=== PATIENT | male | born 1980 | race Caucasian/White ===

== ENCOUNTER 2016-10-31 23:09 | Emergency (ER) | payer OTHER ==
[2016-11-01] MEDS ORDERED: HYDROCODONE/ACETAMINOPHEN 5-325 MG TABLET PO ONE (00:35)
--- NOTE | 2016-11-01 01:03 | ER Document Report ---
ED General - General Chief Complaint: Head Injury Stated Complaint: HEAD INJURY Notes: Patient is a 35-year-old male presents with complaint of being hit in head with base wall. He was pitching to player hit a line drive and hit him directly in the left side of face and amish portion of his head. He did not black out but became very days. He's been holding compression and ice to the area since and. Hurts to open his left jaw. He had some blurred type vision. He is not on blood thinners. No other injuries. No neck pain. No other complaints at this time. TRAVEL OUTSIDE OF THE [place] IN LAST 30 DAYS: No - Related Data Allergies/Adverse Reactions: ketorolac tromethamine [From Toradol] Allergy (Verified 10/31/16 23:21) mesalamine [From Pentasa] Allergy (Verified 10/31/16 23:21) metronidazole [From Flagyl] Allergy (Verified 10/31/16 23:21) Metronidazole HCl [From Flagyl] Allergy (Verified 10/31/16 23:21) morphine [Morphine] Allergy (Verified 10/31/16 23:21) Penicillins Allergy (Verified 10/31/16 23:21) propranolol [Propranolol] Allergy (Verified 10/31/16 23:21) Sulfa (Sulfonamide Antibiotics) Allergy (Verified 10/31/16 23:21) tramadol [Tramadol] Allergy (Verified 10/31/16 23:21) Past Medical History - Social History Smoking Status: Never Smoker Frequency of alcohol use: None Drug Abuse: None Family History: Reviewed & Not Pertinent Patient has suicidal ideation: No Patient has homicidal ideation: No Renal/ Medical History: Reports: Hx Kidney Stones. Denies: Hx Peritoneal Dialysis GI Medical History: Reports: Hx Crohn's Disease, Hx Gastroesophageal Reflux Disease, Hx Hiatal Hernia Past Surgical History: Reports: Hx Abdominal Surgery, Hx Bowel Surgery, Hx Cholecystectomy, Hx Rectal Surgery - Immunizations Hx Diphtheria, Pertussis, Tetanus Vaccination: Yes Review of Systems - Review of Systems Notes: My Normal Review Basic REVIEW OF SYSTEMS: CONSTITUTIONAL : Denies fever, chills, or sweats. Denies recent illness. EENT: Pain to left side of face. GASTROINTESTINAL: Denies abdominal pain. Denies nausea, vomiting, or diarrhea. Denies constipation. Last BM: MUSCULOSKELETAL: Denies neck or back pain or joint pain or swelling. SKIN: Denies rash or skin lesions. NEUROLOGICAL: Denies altered mental status or loss of consciousness. Has a headache. Denies weakness or paralysis or loss of use of either side. Denies problems with gait or speech. Denies sensory or motor loss. ALL OTHER SYSTEMS REVIEWED AND NEGATIVE. Physical Exam - Vital signs Vitals: Temp Pulse Resp BP Pulse Ox 98.4 F 116 H 18 127/90 H 100 10/31/16 23:13 10/31/16 23:13 10/31/16 23:13 10/31/16 23:13 10/31/16 23:13 - Notes Notes: General Appearance: Well nourished, alert, cooperative, no acute distress, moderate obvious discomfort. Vitals: reviewed, See vital signs table. Head: no swelling or tenderness to the head Eyes: PERRL, EOMI, Conjuctiva clear Mouth: No decreasd moisture Throat: No tonsillar inflammation, No airway obstruction, No lymphadenopathy Neck: Supple, no neck tenderness, Extremities: strength 5/5 in all extremities, good pulses in all extremities, no swelling or tenderness in the extremities, no edema. Skin: warm, dry, appropriate color, no rash Neuro: speech clear, oriented x 3, normal affect, responds appropriately to questions. Cranial nerves II through XII are intact. Distal sensation intact. Patient moves all extremities without difficulty. Course - Vital Signs Vital signs: Temp Pulse Resp BP Pulse Ox 97.9 F 81 16 120/81 97 11/01/16 02:38 11/01/16 02:38 11/01/16 02:38 11/01/16 02:38 11/01/16 02:38 - Transfer of Care Notes: 11/01/16 05:59 CT scan showed no evidence of skull fracture bleeding in the brain or facial fracture. I informed patient most likely suffered concussion. We'll have him avoid any type of activities that could potentially and physical contact for at least 2 weeks. Patient encouraged return to ER immediately if he has severe headache, vomiting, or feels unwell. Patient agrees with plan and will be discharged home. Dictation of this chart was performed using voice recognition software; therefore, there may be some unintended grammatical errors. 11/01/16 05:59 Discharge - Discharge Clinical Impression: Concussion Qualifiers: Encounter type: initial encounter Loss of consciousness presence/duration: without LOC Qualified Code(s): S06.0X0A - Concussion without loss of consciousness, initial encounter Condition: Good Disposition: HOME, SELF-CARE Instructions: Oral Narcotic Medication ([facility]) Additional Instructions: Concussion You have suffered a concussion -- a temporary loss of certain brain functions due to a mild brain injury. The recovery is usually rapid and complete. The temporary problems occurring with a concussion can include loss of consciousness, dizziness, nausea, vomiting, and confusion. Repeat concussions can cause brain damage. In the future, avoid activities that will cause a blow to your head. Wear a helmet for sports such as snowboarding, biking, or skating. It's important that someone be with you for the first 24 hours. During this time, do not exercise or drive a vehicle. Do not take any pain medication stronger than acetaminophen unless prescribed by the physician. Any significant changes should be reported immediately to the physician. Signs of a problem may include: (1) Mental confusion (2) Incoordination or staggering (3) Repeated or forceful vomiting (4) Clear or bloody drainage from ear, mouth, or nose (5) Severe headache, not relieved by acetaminophen or prescribed pain medication (6) Failure to improve in 24 hours Please return to the ER immediately if you have intractable vomiting, worsening headache, or severe sleepiness. Please follow up closely with your doctor for reevaluation on Friday. Avoid any activities that could cause potential contact or trauma to your head for at least 2 weeks. Referrals: MATTEO OLSEN MD [Primary Care Provider] - 11/04/16
[2016-11-01] MEDS ORDERED: HYDROCODONE/ACETAMINOPHEN 5-325 MG 6 TAB/DSPK PO PRN (02:21)
[2016-11-01 02:39] VITALS: BP 120/81
== END 2016-11-01 02:39 | disposition home or self-care (01) ==
LOC: ER 23:09
DX: S06.0X0A Concussion without loss of consciousness, initial encounter (principal); W21.03XA Struck by baseball, initial encounter; Y93.64 Activity, baseball; Y92.320 Baseball field as the place of occurrence of the external cause; Z88.8 Allergy status to other drugs, medicaments and biological substances; Z88.1 Allergy status to other antibiotic agents; Z88.5 Allergy status to narcotic agent; Z88.0 Allergy status to penicillin; Z88.2 Allergy status to sulfonamides
CPT/HCPCS: 70450; 70486; 99284

== ENCOUNTER 2017-05-10 22:36 | Emergency (ER) | payer MEDICARE, OTHER ==
[2017-05-10 23:52] LABS: ABSOLUTE BASOPHILS # (AUTO) 0.1 10^3/uL (0.0-0.2); ABSOLUTE EOSINOPHILS # (AUTO) 0.1 10^3/uL (0.0-0.6); ABSOLUTE LYMPHOCYTES (AUTO) 1.9 10^3/uL (0.5-4.7); ABSOLUTE MONOCYTES (AUTO) 0.8 10^3/uL (0.1-1.4); ABSOLUTE NEUT (AUTO) 6.5 10^3/uL (1.7-8.2); BASOPHILS % (AUTO) 1.4 % (0-2); HEMATOCRIT 37.3 % (37.9-51.0); HGB HCT DIFFERENCE 1.7; LYMPHOCYTES % (AUTO) 20.3 % (13-45); MEAN CORPUSCULAR HEMOGLOBIN 30.5 pg (27.0-33.4); MEAN CORPUSCULAR HGB CONC 34.8 g/dL (32.0-36.0); MEAN CORPUSCULAR VOLUME 88 fl (80-97); MONOCYTES % (AUTO) 8.2 % (3-13); RED BLOOD COUNT 4.26 10^6/uL (4.35-5.55); RED CELL DISTRIBUTION WIDTH 12.4 % (11.5-14.0); SEGMENTED NEUTROPHILS % (AUTO) 69.1 % (42-78); WHITE BLOOD COUNT 9.4 10^3/uL (4.0-10.5)
[2017-05-10 23:56] LABS: PROTHROMBIN TIME 12.1 SEC (11.4-15.4)
[2017-05-11] MEDS ORDERED: HYDROMORPHONE HCL INJ/PF 2 MG/ML AMPULE IV ONE ×2 (00:02→03:47)
[2017-05-11] MEDS ORDERED: NORMAL SALINE 1000 ML 1,000 ML IV PRN (00:02)
--- NOTE | 2017-05-11 00:03 | ER Document Report ---
ED General - General Chief Complaint: Wound Infection Stated Complaint: POST SURGERY PROBLEMS Time Seen by Provider: 05/10/17 23:41 Notes: Patient is a 36-year-old male who presents emergency department for wound check. Patient states that he had surgery on April 23 for reversal of previous ileoanal ostomy. Patient states that he has a history of Crohn's disease that is previously required total colectomy, loop ileostomy, ileoanal anastomosis with recent reversal for an ileostomy. Patient states that he was in the hospital for approximately 2 weeks with noted complication of ileus. Otherwise he states that he was discharged home to do wet-to-dry dressings of his abdominal incision that had evidence of wound dehiscence. Patient states that he has been doing wet-to-dry dressings every 12 hours. States this evening she had an area that he was concerned was pus. Otherwise he denies any fevers, chills, nausea, vomiting, abdominal pain. TRAVEL OUTSIDE OF THE [place] IN LAST 30 DAYS: No - Related Data Allergies/Adverse Reactions: ketorolac tromethamine [From Toradol] Allergy (Verified 10/31/16 23:21) mesalamine [From Pentasa] Allergy (Verified 10/31/16 23:21) metronidazole [From Flagyl] Allergy (Verified 10/31/16 23:21) Metronidazole HCl [From Flagyl] Allergy (Verified 10/31/16 23:21) morphine [Morphine] Allergy (Verified 10/31/16 23:21) Penicillins Allergy (Verified 10/31/16 23:21) propranolol [Propranolol] Allergy (Verified 10/31/16 23:21) Sulfa (Sulfonamide Antibiotics) Allergy (Verified 10/31/16 23:21) tramadol [Tramadol] Allergy (Verified 10/31/16 23:21) Past Medical History - Social History Smoking Status: Never Smoker Family History: Reviewed & Not Pertinent Patient has suicidal ideation: No Patient has homicidal ideation: No Renal/ Medical History: Reports: Hx Kidney Stones. Denies: Hx Peritoneal Dialysis GI Medical History: Reports: Hx Crohn's Disease, Hx Gastroesophageal Reflux Disease, Hx Hiatal Hernia Past Surgical History: Reports: Hx Abdominal Surgery, Hx Bowel Surgery, Hx Cholecystectomy, Hx Rectal Surgery - Immunizations Hx Diphtheria, Pertussis, Tetanus Vaccination: Yes Review of Systems - Review of Systems Constitutional: No symptoms reported Cardiovascular: No symptoms reported Respiratory: No symptoms reported Gastrointestinal: See HPI Physical Exam - Vital signs Vitals: Temp Pulse Resp BP Pulse Ox 98.7 F 90 20 134/80 H 95 05/10/17 22:39 05/10/17 22:39 05/10/17 22:39 05/10/17 22:39 05/10/17 22:39 - Notes Notes: PHYSICAL EXAM GENERAL: Alert, interacts well. HEAD: Normocephalic, atraumatic. EYES: Pupils equal, round, and reactive to light. Extraocular movements intact. ENT: Oral mucosa moist, tongue midline. NECK: Full range of motion. Supple. Trachea midline. LUNGS: Clear to auscultation bilaterally, no wheezes, rales, or rhonchi. No respiratory distress. HEART: Regular rate and rhythm. No murmurs, gallops, or rubs. ABDOMEN: Soft, nondistended, nontender. No guarding, rebound, or rigidity.. Bowel sounds present in all 4 quadrants. EXTREMITIES: Moves all 4 extremities spontaneously. No edema, radial and dorsalis pedis pulses 2/4 bilaterally. No cyanosis. NEUROLOGICAL: Alert and oriented x4. Normal speech. PSYCH: Normal affect, normal mood. SKIN: Warm, dry, normal turgor. Midline abdominal laparotomy incision with phoebe and central to the incision is an area approximately 3 cm long and wide with packing. Approximately 3 cm cephalic to this area is an area lateral to the incision that when pressed has clear serous fluid. No surrounding erythema , induration. Course - Re-evaluation Re-evalutation: 05/11/17 03:47 Patient is a 36-year-old male who is hemodynamically stable, no acute distress afebrile. Given previous abdominal surgeries, complications and presentation this evening CT scan was ordered to rule out any concern for deeper abscess. There is no evidence of this on scan. Discussion with resident on-call [facility] agrees with plan for repacking of the site and to withhold antibiotics given no signs of fever, elevated white blood cell count or cellulitis. 2 phoebe removed from the incision to allow for continued drainage of this area. Patient tolerated the procedure well. Stable for discharge home and to touch base with the surgeon's office on Friday. - Vital Signs Vital signs: Temp Pulse Resp BP Pulse Ox 98.7 F 79 16 118/72 95 05/11/17 05:21 05/11/17 05:21 05/11/17 05:21 05/11/17 05:21 05/11/17 05:21 - Laboratory Result Diagrams: 05/10/17 23:46 05/10/17 23:46 Laboratory results interpreted by me: 05/10/17 05/10/17 05/11/17 23:46 23:46 01:20 RBC 4.26 L Hgb 13.0 L Hct 37.3 L Plt Count 495 H Calcium 10.5 H ALT 74 H Alkaline Phosphatase 228 H Urine Blood SMALL H - Diagnostic Test Radiology reviewed: Image reviewed, Reports reviewed Discharge - Discharge Clinical Impression: Visit for wound check Condition: Good Disposition: HOME, SELF-CARE Additional Instructions: Please continue to care for your wound as you have been instructed by [facility]. Please be sure to touch base with your surgeon on Friday Referrals: JESSICA RUBY NP [Primary Care Provider] - Follow up as needed
[2017-05-11 00:25] LABS: ALANINE AMINOTRANSFERASE 74 U/L (21-72); ALBUMIN 4.5 g/dL (3.5-5.0); ALKALINE PHOSPHATASE 228 U/L (38-126); ANION GAP 15 (5-19); ASPARTATE AMINO TRANSFERASE 39 U/L (17-59); BILIRUBIN,DIRECT 0.4 mg/dL (0.0-0.4); BILIRUBIN,TOTAL 0.4 mg/dL (0.2-1.3); BLOOD UREA NITROGEN 12 mg/dL (7-20); CALCIUM 10.5 mg/dL (8.4-10.2); CARBON DIOXIDE 24 mmol/L (22-30); CHLORIDE 102 mmol/L (98-107); CREATININE RESULT 0.92 mg/dL (0.52-1.25); GLUCOSE 94 mg/dL (75-110); SODIUM 141.2 mmol/L (137-145); TOTAL PROTEIN 7.5 g/dL (6.3-8.2)
[2017-05-11 01:37] LABS: APPEARANCE,URINE CLEAR; BILIRUBIN,URINE NEGATIVE (NEGATIVE); GLUCOSE, URINE NEGATIVE (NEGATIVE); KETONES,URINE NEGATIVE (NEGATIVE); LEUKOCYTE ESTERASE,URINE NEGATIVE (NEGATIVE); NITRITE,URINE NEGATIVE (NEGATIVE); PROTEIN,URINE NEGATIVE (NEGATIVE); URINE SPECIFIC GRAVITY 1.017; UROBILINOGEN,URINE NEGATIVE mg/dL (<2.0)
--- NOTE | 2017-05-11 02:05 | RADIOLOGY REPORT (SQ) ---
EXAM DESCRIPTION: CT ABD/PELVIS WITH IV ORAL COMPLETED DATE/TIME: 05/11/2017 1:48 am REASON FOR STUDY: post op pain, superficial drainage COMPARISON: 10/09/2015 TECHNIQUE: CT scan of the abdomen and pelvis performed with intravenous and oral contrast using samuel sandra scanning technique with dynamic intravenous contrast injection. Images reviewed with lung, soft t issue, and bone windows. Reconstructed coronal and sagittal MPR images reviewed. Delayed images for e valuation of the urinary system also acquired. All images stored on PACS. All CT scanners at this facility use dose modulation, iterative reconstruction, and/or weight based d osing when appropriate to reduce radiation dose to as low as reasonably achievable (ALARA). [facility]: Dose Right [facility]: CareDose [facility]: Dose Right [facility]: Teradose 4D [facility]: [employer] CONTRAST TYPE AND DOSE: contrast/concentration: Isovue 370.00 mg/ml; Total Contrast Delivered: 94.0 ml; Total Saline Delivered: 71.0 ml RENAL FUNCTION: GFR > 60. RADIATION DOSE: Up-to-date CT equipment and radiation dose reduction techniques were employed. CTDIv ol: 12.0 - 16.1 mGy. DLP: 1585 mGy-cm. . LIMITATIONS: None. FINDINGS: LOWER CHEST: Basilar atelectasis. LIVER: Normal size. No masses. No dilated ducts. SPLEEN: Normal size. No focal lesions. PANCREAS: No masses. No significant calcifications. No adjacent inflammation or peripancreatic fluid collections. Pancreatic duct not dilated. GALLBLADDER: No identified stones by CT criteria. No inflammatory changes to suggest cholecystitis. ADRENAL GLANDS: No significant masses or asymmetry. RIGHT KIDNEY AND URETER: No solid masses. No significant calcifications. No hydronephrosis or hyd roureter. LEFT KIDNEY AND URETER: No solid masses. No significant calcifications. No hydronephrosis or hydr oureter. AORTA AND VESSELS: No aneurysm. No dissection. Renal arteries, SMA, celiac without stenosis. RETROPERITONEUM: No retroperitoneal adenopathy, hemorrhage or masses. BOWEL AND PERITONEAL CAVITY: Colectomy. Left lower quadrant ostomy. Mild adynamic ileus. No visual ized abscess. APPENDIX: Surgically absent. PELVIS: No significant masses. Normal bladder. No free fluid. ABDOMINAL WALL: Midline surgical incision. No fluid collection. BONES: No significant or acute findings. OTHER: No other significant finding. IMPRESSION: Postsurgical changes with colectomy. Left lower quadrant ostomy. No abscess. Mild megan namic ileus. Midline surgical incision without focal fluid collection. TECHNICAL DOCUMENTATION: JOB ID: [id number] Quality ID # [id number]: Final reports with documentation of one or more dose reduction techniques (e.g., Au tomated exposure control, adjustment of the mA and/or kV according to patient size, use of iterative reconstruction technique) 2010 [employer]- All Rights Reserved
[2017-05-11 05:24] VITALS: BP 118/72
--- NOTE | 2017-05-11 07:58 | EKG REPORT ---
SEVERITY:- NORMAL ECG - SINUS RHYTHM : Confirmed by: Madi Myers MD 11-May-2017 07:58:11
== END 2017-05-11 05:24 | disposition home or self-care (01) ==
LOC: ER 22:36
DX: Z48.815 Encounter for surgical aftercare following surgery on the digestive system (principal); Z90.49 Acquired absence of other specified parts of digestive tract; Z88.8 Allergy status to other drugs, medicaments and biological substances; Z88.1 Allergy status to other antibiotic agents; Z88.5 Allergy status to narcotic agent; Z88.0 Allergy status to penicillin; Z88.2 Allergy status to sulfonamides
CPT/HCPCS: 93005; 99284; 36415; 87086; 82962; 85025; 85610; 80053; 81001; 83605; 74177; 93010; J1170; 82803

== ENCOUNTER 2020-07-19 18:13 | Emergency (ER) | payer MEDICARE, OTHER ==
[2020-07-19] MEDS ORDERED: NORMAL SALINE 1000 ML 1,000 ML IV ONE (18:25)
--- NOTE | 2020-07-19 18:28 | ER Document Report ---
ED Medical Screen (RME) - General Chief Complaint: Abdominal Pain Stated Complaint: LOWER ABDOMINAL PAIN Time Seen by Provider: 07/19/20 18:22 Primary Care Provider: JESSICA RUBY NP [Primary Care Provider] - Follow up as needed Notes: Patient presents complaining of abdominal pain that started around 230 today after eating a sandwich. Patient reports nausea vomiting x4 episodes. Patient states that pain is worse surrounding his colostomy although complains of generalized abdominal pain. Patient reports a history of numerous abdominal surgeries including hernia repair, appendectomy, total colectomy with colostomy. Patient denies any fever. Patient reports ostomy drainage is thicker than it usually appears. I have greeted and performed a rapid initial assessment of this patient. A comprehensive ED assessment and evaluation of the patient, analysis of test results and completion of the medical decision making process will be conducted by additional ED providers. TRAVEL OUTSIDE OF THE [place] IN LAST 30 DAYS: No - Related Data Allergies/Adverse Reactions: ketorolac tromethamine [From Toradol] Allergy (Verified 10/31/16 23:21) mesalamine [From Pentasa] Allergy (Verified 10/31/16 23:21) metronidazole [From Flagyl] Allergy (Verified 10/31/16 23:21) Metronidazole HCl [From Flagyl] Allergy (Verified 10/31/16 23:21) morphine [Morphine] Allergy (Verified 10/31/16 23:21) Penicillins Allergy (Verified 10/31/16 23:21) propranolol [Propranolol] Allergy (Verified 10/31/16 23:21) Sulfa (Sulfonamide Antibiotics) Allergy (Verified 10/31/16 23:21) tramadol [Tramadol] Allergy (Verified 10/31/16 23:21) Home Medications: vit D and B 12 injection every 2 weeks Past Medical History - Social History Chew tobacco use (# tins/day): Yes Frequency of alcohol use: None Drug Abuse: None Renal/ Medical History: Reports: Hx Kidney Stones. Denies: Hx Peritoneal Dialysis GI Medical History: Reports: Hx Crohn's Disease, Hx Gastroesophageal Reflux Disease, Hx Hiatal Hernia Past Surgical History: Reports: Hx Abdominal Surgery, Hx Bowel Surgery, Hx Cholecystectomy, Hx Rectal Surgery - Immunizations Hx Diphtheria, Pertussis, Tetanus Vaccination: Yes Physical Exam - General General appearance: Alert, Anxious Notes: Patient restless, repositioning, patient guards with movement Doctor's Discharge - Discharge Referrals: JESSICA RUBY, [employer]PERATION SHIFT SUPERVISOR [Primary Care Provider] - Follow up as needed
[2020-07-19 20:17] LABS: ABSOLUTE BASOPHILS # (AUTO) 0.1 10^3/uL (0.0-0.2); ABSOLUTE EOSINOPHILS # (AUTO) 0.1 10^3/uL (0.0-0.6); ABSOLUTE LYMPHOCYTES (AUTO) 1.5 10^3/uL (0.5-4.7); ABSOLUTE MONOCYTES (AUTO) 0.7 10^3/uL (0.1-1.4); ABSOLUTE NEUT (AUTO) 7.4 10^3/uL (1.7-8.2); BASOPHILS % (AUTO) 0.6 % (0-2); EOSINOPHILS % (AUTO) 0.6 % (0-6); HEMATOCRIT 43.9 % (37.9-51.0); HEMOGLOBIN 15.2 g/dL (13.5-17.0); LYMPHOCYTES % (AUTO) 15.6 % (13-45); MEAN CORPUSCULAR HEMOGLOBIN 30.4 pg (27.0-33.4); MEAN CORPUSCULAR HGB CONC 34.6 g/dL (32.0-36.0); MEAN CORPUSCULAR VOLUME 88 fl (80-97); MONOCYTES % (AUTO) 6.8 % (3-13); PLATELET COUNT 195 10^3/uL (150-450); RED BLOOD COUNT 4.99 10^6/uL (4.35-5.55); RED CELL DISTRIBUTION WIDTH 13.6 % (11.5-14.0); SEGMENTED NEUTROPHILS % (AUTO) 76.4 % (42-78); TOTAL CELLS COUNTED % (AUTO) 100 %; WHITE BLOOD COUNT 9.6 10^3/uL (4.0-10.5)
[2020-07-19 20:35] LABS: ALBUMIN 4.3 g/dL (3.5-5.0); ALKALINE PHOSPHATASE 72 U/L (38-126); ANION GAP 10 (5-19); ASPARTATE AMINO TRANSFERASE 42 U/L (17-59); BILIRUBIN,DIRECT 0.1 mg/dL (0.0-0.4); BILIRUBIN,TOTAL 0.5 mg/dL (0.2-1.3); BLOOD UREA NITROGEN 10 mg/dL (7-20); CALCIUM 9.7 mg/dL (8.4-10.2); CARBON DIOXIDE 23 mmol/L (22-30); CHLORIDE 105 mmol/L (98-107); GLUCOSE 104 mg/dL (75-110); POTASSIUM 3.9 mmol/L (3.6-5.0); TOTAL PROTEIN 7.1 g/dL (6.3-8.2)
[2020-07-19] MEDS ORDERED: RINGERS SOLUTION,LACTATED 1,000 ML IV ONE ×2 (20:56→23:32)
[2020-07-19] MEDS ORDERED: HYDROMORPHONE HCL INJ/PF 2 MG/ML AMPULE IV ONE ×3 (20:57→23:52)
[2020-07-19] MEDS ORDERED: ONDANSETRON HCL INJ/PF 4 MG/2 ML SDV IV ONE ×2 (20:57→23:55)
--- NOTE | 2020-07-19 20:57 | RADIOLOGY REPORT (SQ) ---
EXAM DESCRIPTION: CT ABD/PELVIS WITH IV ONLY CLINICAL HISTORY: 39 years Male; abd pain, hx IBD TECHNIQUE: CT of the abdomen and pelvis with intravenous contrast.. Oral contrastWas not used. Delayed imaging of the abdomen and pelvis was performed. All CT scans at this facility use dose modulation, iterative reconstruction, and/or weight based dosing when appropriate to reduce radiation dose to as low as reasonably achievable. This exam was performed according to our department optimization program which includes automated exposure control, adjustment of the mA and/or kv according to patient size and/or use of iterative reconstruction technique. COMPARISON: CT scan of the abdomen and pelvis May 11, 2017. FINDINGS: Lower chest:The lung bases are clear. The visualized portion of heart and great vessels are normal. Abdomen: Liver and biliary tree: Diffuse fatty infiltration of the liver is identified. Portal vein and hepatic veins are patent. The gallbladder is unremarkable. Pancreas: Normal Spleen:Within normal limits Kidneys: Kidneys are normal in size, shape and position. No stones. No mass or hydronephrosis. Symmetric renal enhancement. On delayed images there is symmetric contrast excretion from the kidneys bilaterally. The ureters are normal. Adrenal glands:Within normal limits Vascular structures:Within normal limits Retroperitoneum: No mass or lymphadenopathy Abdominal wall: A left lower quadrant colostomy is identified adjacent to the colostomy is a parastomal hernia containing a loop of small bowel which is dilated. The parastomal hernia is new when compared the previous exam. The bowel both proximal and distal to the small bowel herniated loop is dilated. The distal small bowel and the residual colon is decompressed. Findings are consistent with small bowel obstruction. The transition point appears to be in the left upper quadrant and is not clearly related to the hernia. GI: Postsurgical change of abdominal perineal resection with left lower quadrant colostomy. There is a parastomal hernia containing a dilated loop of small bowel. Proximal small bowel is dilated in the distal small bowel and colon are decompressed. The transition zone is in the left upper quadrant and may be related to adhesions or an internal hernia. There are scattered diverticula in the colon. No diverticulitis. Appendix: The appendix is not clearly seen. General: No free air. No free fluid Pelvis: Lymph nodes: No mass or lymphadenopathy Bladder: Unremarkable. Pelvis: No pelvic mass or adenopathy. Bones: No acute bone findings. IMPRESSION: 1. Postsurgical change of abdominal perineal resection with left lower quadrant colostomy. 2. Interval development of a left parastomal hernia containing a dilated loop of small bowel. 3. Abnormal bowel gas pattern consistent with small bowel obstruction. The transition zone is in the left upper quadrant of the abdomen and may be related to adhesions or internal hernia. 3. Fatty infiltration of the liver.
[2020-07-19] MEDS ORDERED: LIDOCAINE 2% INJ-PF (20 MG/ML) 10 ML AMPUL NEB ONE (21:12)
[2020-07-19 21:26] LABS: APPEARANCE,URINE CLEAR; BILIRUBIN,URINE NEGATIVE (NEGATIVE); COLOR,URINE YELLOW; GLUCOSE, URINE NEGATIVE (NEGATIVE); KETONES,URINE NEGATIVE (NEGATIVE); LEUKOCYTE ESTERASE,URINE NEGATIVE (NEGATIVE); NITRITE,URINE NEGATIVE (NEGATIVE); PROTEIN,URINE NEGATIVE (NEGATIVE); UROBILINOGEN,URINE NEGATIVE mg/dL (<2.0)
[2020-07-19] MEDS ORDERED: OXYMETAZOLINE HCL 0.05% NASAL SPRAY 15 ML BOTTLE NASL ONE (23:14)
[2020-07-19] MEDS ORDERED: ONDANSETRON HCL INJ/PF 4 MG/2 ML SDV ONE (23:55)
--- NOTE | 2020-07-19 23:58 | ER Document Report ---
ED General - General Chief Complaint: Abdominal Pain Stated Complaint: LOWER ABDOMINAL PAIN Time Seen by Provider: 07/19/20 18:22 Primary Care Provider: JESSICA RUBY NP [NURSE PRACTITIONER] - Follow up as needed Notes: 39-year-old male with history of Crohn's disease with 28 prior abdominal surgeries for multiple ostomies and reversals and ultimately end ileostomy presents with severe abdominal pain diffusely started approximately 6 hours prior to arrival associated with nausea and no output from ostomy bag. Patient denies black stool, bloody stool, vomiting, fever, chest pain, trauma, dizziness, syncope TRAVEL OUTSIDE OF THE [place] IN LAST 30 DAYS: No - Related Data Allergies/Adverse Reactions: ketorolac tromethamine [From Toradol] Allergy (Verified 10/31/16 23:21) mesalamine [From Pentasa] Allergy (Verified 10/31/16 23:21) metronidazole [From Flagyl] Allergy (Verified 10/31/16 23:21) Metronidazole HCl [From Flagyl] Allergy (Verified 10/31/16 23:21) morphine [Morphine] Allergy (Verified 10/31/16 23:21) Penicillins Allergy (Verified 10/31/16 23:21) propranolol [Propranolol] Allergy (Verified 10/31/16 23:21) Sulfa (Sulfonamide Antibiotics) Allergy (Verified 10/31/16 23:21) tramadol [Tramadol] Allergy (Verified 10/31/16 23:21) Home Medications: vit D and B 12 injection every 2 weeks Past Medical History - General Information source: Patient - Social History Smoking Status: Former Smoker Chew tobacco use (# tins/day): Yes Frequency of alcohol use: None Drug Abuse: None Family History: Reviewed & Not Pertinent Renal/ Medical History: Reports: Hx Kidney Stones. Denies: Hx Peritoneal Dialysis GI Medical History: Reports: Hx Crohn's Disease, Hx Gastroesophageal Reflux Disease, Hx Hiatal Hernia Past Surgical History: Reports: Hx Abdominal Surgery, Hx Bowel Surgery, Hx Cholecystectomy, Hx Rectal Surgery - Immunizations Hx Diphtheria, Pertussis, Tetanus Vaccination: Yes Review of Systems - Review of Systems Notes: REVIEW OF SYSTEMS: CONSTITUTIONAL : Denies fever, chills, or sweats. EENT: Denies recent cold/sinus symptoms, denies throat pain CARDIOVASCULAR: Denies chest pain, JER RESPIRATORY: Denies cough, denies shortness of breath. GASTROINTESTINAL: + abdominal pain, +nausea GENITOURINARY: Denies difficulty urinating, painful urination. MUSCULOSKELETAL: Denies neck pain, back pain. SKIN: Denies rash or skin lesions. HEMATOLOGIC : Denies easy bruising or bleeding. LYMPHATIC: Denies swollen, enlarged glands. NEUROLOGICAL: Denies headache, denies change in gait. PSYCHIATRIC: Denies anxiety or stress or depression. Physical Exam - Vital signs Vitals: Temp Pulse Resp BP Pulse Ox 98.2 F 94 24 H 140/84 H 100 07/19/20 18:34 07/19/20 18:34 07/19/20 18:34 07/19/20 18:34 07/19/20 18:34 - Notes Notes: PHYSICAL EXAMINATION: GENERAL: Uncomfortable but nontoxic-appearing young adult man in no acute distress HEAD: Atraumatic, normocephalic. EYES: Pupils equal round and appropriate constriction, sclera anicteric, conjunctiva are normal. ENT: nares patent, moist mucous membranes. NECK: Normal range of motion, supple without lymphadenopathy LUNGS: Breath sounds clear to auscultation bilaterally and equal. No wheezes rales or rhonchi. HEART: Regular rate and rhythm without murmurs ABDOMEN: Soft, diffuse tenderness without guarding or rebound, lower mid abdominal ostomy bag with low volume brown stool and no gas in bag, no visible blood EXTREMITIES: Normal range of motion, no pitting or edema. No cyanosis. NEUROLOGICAL: Awake, alert, conversing appropriately, moves all extremities spontaneously. PSYCH: Normal mood, normal affect. SKIN: Warm, Dry, normal turgor, no rashes or lesions noted. Course - Re-evaluation Re-evalutation: 07/19/20 23:56 Presentation concerning for possible bowel obstruction versus strangulated or incarcerated hernia versus recurrent Crohn's symptoms. Patient with normal vital signs, nontoxic appearance, obtain CT abdomen pelvis which showed small bowel obstruction. Given patient's significant surgical history with 28+ prior abdominal surgeries at [facility] I contacted [facility] for transfer for continuity of care and the patient was accepted to the surgical service by Dr. Solano. I placed NG tube which successfully drained approximately 500 mL of centeno/clear fluid without complication. Started patient on maintenance fluids, gave pain and nausea control. Patient transferred here at this time to take patient to [facility] where he has a bed assignment, patient remains appropriate for transfer at this time. 07/19/20 23:59 At 11:45 PM I placed a 14 Cam[place] nasogastric tube to 30 cm at the nose after Afrin spray and lidocaine 1% without lidocaine 6 mL nebulizer treatment without complication with drainage of 500 mL of centeno/clear fluid, patient tolerated procedure well. - Vital Signs Vital signs: Temp Pulse Resp BP Pulse Ox 97.8 F 68 17 121/78 100 07/19/20 22:46 07/19/20 22:46 07/19/20 22:46 07/19/20 22:46 07/19/20 22:46 - Laboratory Results Result Diagrams: 07/19/20 19:59 07/19/20 19:59 Laboratory Results Interpreted: 07/19/20 19:59 ALT 83 H Critical Laboratory Results Reviewed: No Critical Results - Radiology Results Critical Radiology Results Reviewed: Yes Attending or Supervising Physician who Reviewed Radiology: KAYLA OROPEZA Discharge - Discharge Clinical Impression: Small bowel obstruction Crohn's disease Qualifiers: Gastrointestinal tract location: small and large intestine Digestive disease complication type: with intestinal obstruction Qualified Code(s): K50.812 - Crohn's disease of both small and large intestine with intestinal obstruction Disposition: [place] Referrals: JESSICA RUBY NP [NURSE PRACTITIONER] - Follow up as needed
[2020-07-20 00:11] VITALS: BP 129/80
== END 2020-07-20 00:26 | disposition short-term general hospital (02) ==
LOC: ER 18:13
DX: K50.812 Crohn's disease of both small and large intestine with intestinal obstruction (principal); K43.3 Parastomal hernia with obstruction, without gangrene; K76.0 Fatty (change of) liver, not elsewhere classified; R10.84 Generalized abdominal pain; R10.817 Generalized abdominal tenderness; R11.0 Nausea; Z93.2 Ileostomy status; Z79.899 Other long term (current) drug therapy; Z72.0 Tobacco use; Z88.8 Allergy status to other drugs, medicaments and biological substances; Z88.1 Allergy status to other antibiotic agents; Z88.6 Allergy status to analgesic agent; Z88.5 Allergy status to narcotic agent; Z88.0 Allergy status to penicillin; Z88.2 Allergy status to sulfonamides; Z20.828 Contact with and (suspected) exposure to other viral communicable diseases
CPT/HCPCS: 96376; 99285; 96361; 96374; 96375; 36415; 83690; 85025; 0241U ×4; 80053; 81001; 74177; J1170; A9270; J2405; J7030; J7120; J3490; C9803